=== PATIENT | female | born 1975 | race Caucasian/White ===

== ENCOUNTER 2024-07-07 13:23 | Emergency (ER) | payer MEDICAID ==
[~2024-07-07] VITALS: Ht 165.1 cm; Wt 70.0 kg
[2024-07-07 13:25] VITALS: O2SAT 98
[2024-07-07] MEDS ORDERED: DIPHENHYDRAMINE 50MG/ML VIAL IM ONE (14:00)
[2024-07-07] MEDS ORDERED: DEXAMETHASONE 10 MG/ML VIAL IM ONE ×2 (14:00→17:15)
[2024-07-07] MEDS ORDERED: HYDROCODONE/ACETAMINOPHEN 5/325MG TABLET PO ONE (14:15)
[2024-07-07] MEDS: DEXAMETHASONE 10 MG/ML VIAL IM NR (17:15)
[2024-07-07] MEDS: DIPHENHYDRAMINE 50MG/ML VIAL IM NR (17:15)
[2024-07-07] MEDS: HYDROCODONE/ACETAMINOPHEN 5/325MG TABLET PO NR (17:15)
[2024-07-07 17:39] LABS: BASOPHILS % 0.7 % (0.0-2.0); HEMATOCRIT. 35.9 % (36.0-48.0); HEMOGLOBIN. 12.4 g/dL (12.0-16.0); LYMPHOCYTES % 12.2 % (20.0-50.0); MEAN CORPUSCULAR HEMOGLOBIN 33.1 pg (28.0-32.0); MEAN CORPUSCULAR HGB CONC 34.6 g/dL (31.0-37.0); MEAN CORPUSCULAR VOLUME 95.7 fL (81.0-99.0); MEAN PLATELET VOLUME 6.8 fl (7.4-10.4); NEUTROPHILS % 77.1 % (40.0-76.0); PLATELET 274 x1000/uL (130-400); RED BLOOD CELL COUNT 3.75 mill/uL (4.2-5.4); RED CELL DISTRIBUTION WIDTH 12.7 % (11.6-14.6); WHITE BLOOD COUNT 6.3 x1000/uL (4.5-11.0)
[2024-07-07 17:41] LABS: CHLORIDE 101 mEq/L (98-107); POTASSIUM 3.8 mEq/L (3.5-5.1); SODIUM 136 mEq/L (136-145)
[2024-07-07 17:42] LABS: CARBON DIOXIDE 30 mEq/L (21-32)
[2024-07-07 17:43] LABS: CALCIUM 9.9 mg/dL (8.7-10.4)
[2024-07-07 17:47] LABS: CREATININE 0.9 mg/dL (0.6-1.0); GLUCOSE 95 mg/dL (70-105); UREA NITROGEN BLOOD 15 mg/dL (9-23)
[2024-07-07] MEDS ORDERED: DIPH25TA26 MT (17:51)
[2024-07-07] MEDS ORDERED: DEXA4TAB MT (17:51)
[2024-07-07] MEDS ORDERED: EPIN0.3P3 IM (17:56)
[2024-07-07 18:25] VITALS: BP 135/98; PULSE 76; RESP 16; TEMP 36.9; O2SAT 98
== END 2024-07-07 18:28 | disposition home or self-care (01) ==
LOC: ER 13:23
DX: T78.40XA Allergy, unspecified, initial encounter (principal); I10 Essential (primary) hypertension; X58.XXXA Exposure to other specified factors, initial encounter
CPT/HCPCS: 99285; 70450; 80048; 85025; 36415; 96372; J1100; J1200